=== PATIENT | male | born 1995 | race Caucasian/White ===

== ENCOUNTER 2017-04-10 08:36 | Emergency (ER) | payer MEDICAID ==
[2017-04-10 08:44] VITALS: BP 122/91
--- NOTE | 2017-04-10 08:56 | ED Physician Documentation ---
PD HPI UPPER EXT INJURY - Stated complaint Stated Complaint: THUMB LAC - Chief complaint Chief Complaint: Laceration - History obtained from History obtained from: Patient - History of Present Illness Location: Left, Finger (thumb tip laceration from serrateknife while cutting food at home.) Type of injury: Laceration (from knife while cutting food) Where injury occurred: Home Timing - onset: How many minutes ago (30), Today Timing - details: Abrupt onset (he says it bled well initially but is better now after pressure. He says it is hurting quite a bit.) Worsened by: Palpating Associated symptoms: No: Weakness, Numbness Similar symptoms before: Has not had sx before Recently seen: Not recently seen Review of Systems Neurologic: denies: Focal weakness, Numbness, Near syncope PD PAST MEDICAL HISTORY - Past Medical History Past Medical History: Yes Respiratory: Asthma - Past Surgical History Past Surgical History: Yes HEENT: Tonsil/Adenoidectomy - Present Medications Home Medications: Ambulatory Orders Medication Instructions Recorded Confirmed Albuterol [Ventolin Hfa] 2 puffs INH Q4H PRN #1 inhaler 09/13/15 04/10/17 - Allergies Allergies/Adverse Reactions: Allergies Allergy/AdvReac Type Severity Reaction Status Date / Time acetaminophen [From Vicodin] Allergy Itching Verified 04/10/17 09:25 hydrocodone bitartrate * Allergy Itching Verified 04/10/17 09:25 [From Vicodin] - Social History Does the pt smoke?: No Smoking Status: Former smoker Does the pt drink ETOH?: No Does the pt have substance abuse?: No Substance Use and Type: Marijuana - Immunizations Immunizations are current?: Yes - POLST Patient has POLST: No PD ED PE NORMAL - Vitals Vital signs reviewed: Yes - General General: Alert and oriented X 3, Well developed/nourished, Other (appears uncomfortable due to the pain at the thumb. ) - Derm Derm: Normal color, Warm and dry - Extremities Extremities: Other (left thumb tip with laceration 1.5 cm not into nailbed, without bleeding nor FB. Edges are adjacent. ) - Neuro Neuro: Alert and oriented X 3, No motor deficit, No sensory deficit Results - Vitals Vitals: Vital Signs - 24 hr 04/10/17 08:42 Temperature 36.1 C L Heart Rate 93 Respiratory 18 Rate Blood Pressure 122/91 H O2 Saturation 100 Oxygen O2 Source Room air PD MEDICAL DECISION MAKING - ED course Complexity details: considered differential (seems excessive pain for the size of the cut, but gave dose of pain med here. Should be able to continue with OTCs. The wound is closed at this point and the patient prefers steri-strips over sutures, can protect thumb and keep it dry. ), d/w patient Departure - Departure Disposition: 01 Home, Self Care Clinical Impression: Laceration of thumb Qualifiers: Encounter type: initial encounter Laterality: left Qualified Code(s): S61.012A - Laceration without foreign body of left thumb without damage to nail, initial encounter Condition: Stable Record reviewed to determine appropriate education?: Yes Instructions: ED Laceration Hand Comments: Keep the Steri-Strips clean and dry and allow therm to fall off on their own after several days. Tylenol or ibuprofen if needed for pain. Recheck if signs of infection. Discharge Date/Time: 04/10/17 09:25
[2017-04-10] MEDS ORDERED: IBUPROFEN 600 MG TABLET PO STA (09:03)
[2017-04-10] MEDS ORDERED: traMADol 50 MG TABLET PO STA (09:03)
[2017-04-10] MEDS ORDERED: IBUPROFEN 600 MG TABLET PO ONE (09:04)
[2017-04-10] MEDS ORDERED: traMADol 50 MG TABLET PO ONE (09:04)
[2017-04-10] MEDS ORDERED: oxyCOD/ACETAMIN 5 MG/325 MG TABLET PO STA (09:17)
[2017-04-10] MEDS ORDERED: oxyCOD/ACETAMIN 5 MG/325 MG TABLET PO ONE (09:18)
== END 2017-04-10 09:25 | disposition home or self-care (01) ==
LOC: ED 08:36
DX: S61.012A Laceration without foreign body of left thumb without damage to nail, initial encounter (principal); W26.0XXA Contact with knife, initial encounter; Y93.G1 Activity, food preparation and clean up; Y92.009 Unspecified place in unspecified non-institutional (private) residence as the place of occurrence of the external cause; Z87.891 Personal history of nicotine dependence
CPT/HCPCS: 99283; A9270

== ENCOUNTER 2017-08-07 21:09 | Emergency (ER) | payer MEDICAID ==
[2017-08-07] MEDS ORDERED: predniSONE 20 MG TABLET PO STA (21:21)
[2017-08-07] MEDS ORDERED: ALBUTEROL NEB 2.5 MG/3 ML INH STA ×2 (21:21→21:40)
--- NOTE | 2017-08-07 21:26 | ED Physician Documentation ---
PD HPI DYSPNEA - Stated complaint Stated Complaint: SOA - Chief complaint Chief Complaint: Resp - History obtained from History obtained from: Patient - History of Present Illness Timing - onset: Other (22-year-old with history of intermittent asthma presents with increased dyspnea today with wheezing and nonproductive cough, also runny nose but no fevers. He is not currently under any treatment for his asthma.) Review of Systems Constitutional: denies: Fever, Chills Nose: reports: Rhinorrhea / runny nose. denies: Congestion Cardiac: denies: Chest pain / pressure, Palpitations Respiratory: reports: Dyspnea, Cough GI: denies: Abdominal Pain PD PAST MEDICAL HISTORY - Past Medical History Past Medical History: Yes Respiratory: Asthma - Past Surgical History Past Surgical History: Yes HEENT: Tonsil/Adenoidectomy - Present Medications Home Medications: Ambulatory Orders Medication Instructions Recorded Confirmed Albuterol Sulfate [Proventil Hfa 1 - 2 puffs IH Q4H PRN #1 08/07/17 Inhaler] [email or web address] predniSONE [Deltasone] 60 mg PO DAILY 5 Days tablet 08/07/17 - Allergies Allergies/Adverse Reactions: Allergies Allergy/AdvReac Type Severity Reaction Status Date / Time hydrocodone bitartrate * Allergy Itching Verified 08/07/17 21:15 [From Vicodin] - Social History Does the pt smoke?: Yes Smoking Status: Current every day smoker Does the pt drink ETOH?: No Does the pt have substance abuse?: No - Immunizations Immunizations are current?: Yes - POLST Patient has POLST: No PD ED PE NORMAL - Vitals Vital signs reviewed: Yes - General General: Alert and oriented X 3, No acute distress - HEENT HEENT: PERRL, EOMI - Neck Neck: Supple, no meningeal sign, No bony TTP - Cardiac Cardiac: RRR, No murmur - Respiratory Respiratory: Other (Slightly labored breathing with inspiratory and expiratory wheezing throughout but no focal findings.) - Abdomen Abdomen: Non tender - Neuro Neuro: Alert and oriented X 3, Normal speech - Psych Psych: Normal mood, Normal affect Results - Vitals Vitals: Vital Signs - 24 hr 08/07/17 08/07/17 08/07/17 21:12 21:25 21:32 Temperature 36.2 C L Heart Rate 95 94 78 Respiratory 24 22 18 Rate Blood Pressure 129/62 131/105 H O2 Saturation 95 95 Oxygen O2 Source Room air PD MEDICAL DECISION MAKING - ED course ED course: 22-year-old with apparent asthma exacerbation, no evidence of focal bacterial illness. After the first neb he was feeling much better but still mildly wheezy on exam and this was followed by a second albuterol neb. Departure - Departure Disposition: Home, Self Care Clinical Impression: Asthma Condition: Good Record reviewed to determine appropriate education?: Yes Instructions: Asthma, ED Smoking Cessation Prescriptions: Albuterol Sulfate [Proventil Hfa Inhaler] 1 - 2 puffs IH Q4H PRN #1 [email or web address] PRN Reason: Cough predniSONE [Deltasone] 60 mg PO DAILY 5 Days tablet Comments: Call your doctor to arrange a follow-up appointment, make the next available appointment. In the interim, return anytime if worse or if new symptoms develop. Your blood pressure was elevated today on check into the emergency department. This does not mean that you have hypertension, it is a common phenomenon to come to the emergency department and have elevated blood pressure. I recommend that she see your primary care physician within the week to have it rechecked when you are feeling better.
[2017-08-07] MEDS ORDERED: ALBUTEROL NEB 2.5 MG/3 ML INH ONE ×2 (21:27→21:52)
[2017-08-07] MEDS ORDERED: predniSONE 20 MG TABLET ONE (21:31)
[2017-08-07 22:11] VITALS: BP 123/65
== END 2017-08-07 22:11 | disposition home or self-care (01) ==
LOC: ED 21:09
DX: J45.20 Mild intermittent asthma, uncomplicated (principal); F17.200 Nicotine dependence, unspecified, uncomplicated; R03.0 Elevated blood-pressure reading, without diagnosis of hypertension
CPT/HCPCS: 94640; 99283; J7512; J7613

== ENCOUNTER 2018-04-29 14:49 | Emergency (ER) | payer MEDICAID ==
[2018-04-29 15:15] VITALS: BP 126/80
--- NOTE | 2018-04-29 16:17 | XRAY Report ---
Procedure Date: 04/29/2018 Accession Number: [id number] / [id number] Procedure: XR - Chest 2 View X-Ray CPT Code: 87379 FULL RESULT: EXAM: CHEST RADIOGRAPHY EXAM DATE: 04/29/2018 03:43 PM. CLINICAL HISTORY: Cough and congestion since yesterday. Fever. Chills. COMPARISON: 12/19/2014. TECHNIQUE: 2 views. FINDINGS: Lungs/Pleura: No focal opacities evident. No pleural effusion. No pneumothorax. Normal volumes. Mediastinum: Heart and mediastinal contours are unremarkable. Other: Stable mild lower thoracic compression fracture. IMPRESSION: Clear lungs. RADIA
--- NOTE | 2018-04-29 17:32 | ED Physician Documentation ---
PD HPI URI - Stated complaint Stated Complaint: CHEST CONGESTION - Chief complaint Chief Complaint: Resp - History obtained from History obtained from: Patient - History of Present Illness Timing - onset: Yesterday Timing duration: Days (1) Timing details: Gradual onset, Still present Associated symptoms: Nasal congestion, Rhinorrhea, Sore throat, Productive cough , Dyspnea Improves by: Rest, Medication Worsened by: Activity Similar symptoms before: Diagnosis (bronchitis asthma) Recently seen: Not recently seen - Additional information Additional information: 23-year-old male with a history of asthma has developed a cough and significant congestion. He is coughing up yellow and green phlegm has a bit of a sore throat and shortness of breath. He does not have an inhaler at home he does not have a primary care doctor. He does state that he has previously used her inhaler quite frequently and cut down on his smoking is not had to use it as often. He does not use an inhaler between illnesses now. He was last on a course of prednisone in July. Review of Systems Constitutional: denies: Fever Eyes: denies: Decreased vision Ears: denies: Ear pain Nose: reports: Rhinorrhea / runny nose, Congestion Throat: reports: Sore throat Cardiac: denies: Chest pain / pressure, Palpitations Respiratory: reports: Dyspnea, Cough, Wheezing GI: denies: Abdominal Pain, Nausea, Vomiting : denies: Dysuria, Frequency PD PAST MEDICAL HISTORY - Past Medical History Past Medical History: Yes Respiratory: Asthma - Past Surgical History Past Surgical History: Yes HEENT: Tonsil/Adenoidectomy - Present Medications Home Medications: Ambulatory Orders Medication Instructions Recorded Confirmed Albuterol Sulfate [Proventil Hfa 1 - 2 puffs IH Q4H PRN #1 08/07/17 Inhaler] [email or web address] predniSONE [Deltasone] 60 mg PO DAILY 5 Days tablet 08/07/17 Albuterol Sulf [Ventolin Hfa 1 - 2 puffs INH Q4HR PRN #1 inhaler 04/29/18 Inhaler] Azithromycin [Zithromax] 250 mg PO DAILY #6 tablet 04/29/18 predniSONE [Deltasone] 10 mg PO DAILY #26 tablet 04/29/18 - Allergies Allergies/Adverse Reactions: Allergies Allergy/AdvReac Type Severity Reaction Status Date / Time hydrocodone bitartrate * Allergy Itching Verified 08/07/17 21:15 [From Vicodin] - Social History Does the pt smoke?: Yes Smoking Status: Current every day smoker Does the pt drink ETOH?: No Does the pt have substance abuse?: No - Immunizations Immunizations are current?: Yes - POLST Patient has POLST: No PD ED PE NORMAL - Vitals Vital signs reviewed: Yes (tachy) - General General: Alert and oriented X 3, No acute distress, Well developed/nourished - HEENT HEENT: Atraumatic, PERRL, EOMI, Moist mucous membranes, Dentition benign, Other (left TM is flush) - Neck Neck: Supple, no meningeal sign, No bony TTP - Cardiac Cardiac: RRR, No murmur - Respiratory Respiratory: No respiratory distress, Other (tight wheezes scattered through all lung ramos) - Abdomen Abdomen: Soft, Non tender - Derm Derm: Normal color, Warm and dry, No rash - Extremities Extremities: No deformity, No edema - Neuro Neuro: Alert and oriented X 3, No motor deficit, No sensory deficit, Normal speech Eye Opening: Spontaneous Motor: Obeys Commands Verbal: Oriented GCS Score: 15 - Psych Psych: Normal mood, Normal affect Results - Vitals Vitals: Vital Signs - 24 hr 04/29/18 15:13 Temperature 36.6 C Heart Rate 102 H Respiratory 16 Rate Blood Pressure 126/80 O2 Saturation 99 Oxygen O2 Source Room air - Rads (name of study) 2 veiw chest Radiology: Prelim report reviewed (Impression clear lungs.), EMP read indepedently, See rad report PD MEDICAL DECISION MAKING - ED course Complexity details: reviewed old records, reviewed results, re-evaluated patient , considered differential, d/w patient ED course: 23-year-old male with history of asthma has URI with right otitis and production of green phlegm. We will place him on some albuterol prednisone and Zithromax. - Sepsis Event Vital Signs: Vital Signs - 24 hr 04/29/18 15:13 Temperature 36.6 C Heart Rate 102 H Respiratory 16 Rate Blood Pressure 126/80 O2 Saturation 99 Oxygen O2 Source Room air Departure - Departure Disposition: 01 Home, Self Care Clinical Impression: Asthma Otitis media Qualifiers: Otitis media type: suppurative Chronicity: acute Laterality: right Recurrence: not specified as recurrent Spontaneous tympanic membrane rupture: without spontaneous rupture Qualified Code(s): H66.001 - Acute suppurative otitis media without spontaneous rupture of ear drum, right ear Condition: Stable Instructions: ED Bronchitis Asthmatic, ED Otitis Media Acute Adult Follow-Up: [facility] [Provider Group] Prescriptions: Albuterol Sulf [Ventolin Hfa Inhaler] 1 - 2 puffs INH Q4HR PRN #1 inhaler PRN Reason: Shortness Of Air/Wheezing Azithromycin [Zithromax] 250 mg PO DAILY #6 tablet predniSONE [Deltasone] 10 mg PO DAILY #26 tablet
== END 2018-04-29 17:50 | disposition home or self-care (01) ==
LOC: ED 14:49
DX: J45.909 Unspecified asthma, uncomplicated (principal); H66.001 Acute suppurative otitis media without spontaneous rupture of ear drum, right ear; F17.200 Nicotine dependence, unspecified, uncomplicated
CPT/HCPCS: 71046; 99283

== ENCOUNTER 2018-06-03 11:02 | Emergency (ER) | payer MEDICAID ==
[2018-06-03 11:20] VITALS: BP 118/81
[2018-06-03] MEDS ORDERED: IBUPROFEN 400 MG TABLET PO STA (11:34)
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
== END 2018-06-03 12:04 | disposition home or self-care (01) ==
LOC: ED 11:02
DX: S60.221A Contusion of right hand, initial encounter (principal); W22.09XA Striking against other stationary object, initial encounter; F17.200 Nicotine dependence, unspecified, uncomplicated
CPT/HCPCS: 99282; A9270

== ENCOUNTER 2023-02-23 05:36 | Outpatient (CLI) | payer MEDICAID | END 2023-02-23 05:37 | disposition left against medical advice (07) | LOC: EMS 05:36 | DX: T40.411A Poisoning by fentanyl or fentanyl analogs, accidental (unintentional), initial encounter (principal) ==

== ENCOUNTER 2023-08-21 12:38 | Emergency (ER) | payer MEDICAID ==
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
[2023-08-21] MEDS ORDERED: IBUPROFEN 600 MG TABLET PO STA (14:43)
[2023-08-21] MEDS ORDERED: methocarbamoL 500 MG TABLET PO STA (14:44)
[2023-08-21] MEDS ORDERED: HYDROcod/ACETAM 5/325 MG TABLET PO STA (14:44)
--- NOTE | 2023-08-21 15:15 | XRAY Report ---
PROCEDURE: Thoracic Spine 2 View INDICATIONS: fall, struck lower thoracic area TECHNIQUE: 2 views of the thoracic spine were acquired. COMPARISON: None. FINDINGS: Bones: No fractures or dislocations. No suspicious bony lesions. 12 pairs of ribs are noted, and a ppear intact where visualized. Soft tissues: No paravertebral stripe thickening. IMPRESSION: No visualized acute fracture or dislocation. However, occult injury cannot be excluded. Recommend seema rt interval imaging follow-up in 7-10 days as clinically indicated for additional evaluation. Reviewed by: Carrie Fernández MD on 08/21/2023 3:14 PM PDT Approved by: Carrie Fernández MD on 08/21/2023 3:14 PM PDT Station ID: [id number]
[2023-08-21 15:24] VITALS: BP 136/88; O2SAT 99
== END 2023-08-21 15:36 | disposition home or self-care (01) ==
LOC: ED 12:38
DX: S80.02XA Contusion of left knee, initial encounter (principal); S20.229A Contusion of unspecified back wall of thorax, initial encounter; X58.XXXA Exposure to other specified factors, initial encounter; Y93.18 Activity, surfing, windsurfing and boogie boarding; F17.200 Nicotine dependence, unspecified, uncomplicated
CPT/HCPCS: 72070; 99283; 99284; A9270